=== PATIENT | male | born 2000 | race Caucasian/White ===

== ENCOUNTER → 2019-11-12 15:08 | Outpatient (BNVA) | payer OTHER, SELFPAY | PROVIDERS: PCP Pediatrics; Visit Provider Urology | DX: N48.29 Other inflammatory disorders of penis (principal) | CPT/HCPCS: 99202 ==

== ENCOUNTER 2020-12-22 10:05 | Outpatient (REF) | payer OTHER, SELFPAY ==
[2020-12-22 11:44] LABS: Alanine Aminotransferase 49 U/L (0-40); Albumin Level 4.8 g/dL (3.5-5.0); Alkaline Phosphatase 90 U/L (39-117); Anion Gap 15 (12-20); Aspartate Amino Transferase 26 U/L (5-37); Bilirubin Total 2.8 mg/dL (0.0-1.0); Blood Urea Nitrogen 15 mg/dL (9-16); Calcium 9.9 mg/dL (8.4-10.2); Carbon Dioxide 26 mmol/L (22-29); Chloride 104 mmol/L (96-108); Cholesterol 169 mg/dL; Estimated Glomerular Filt Rate > 60; Glucose Fasting 93 mg/dL (60-99); HDL Cholesterol 56 mg/dL; LDL Cholesterol Calculated 92 mg/dl; Potassium 4.5 mmol/L (3.3-5.1); Sodium 140 mmol/L (135-145); Total Protein 7.5 g/dL (6.5-8.0); Triglycerides 108 mg/dL
[2020-12-22 12:04] LABS: TSH reflex Free T4 1.01 uIU/mL (0.32-4.0)
[2020-12-22 13:18] LABS: CT PCR NOT DETECTED (Not Detect.); NG PCR NOT DETECTED (Not Detect.)
[2020-12-23 08:24] LABS: Syphilis Screen Nonreactive (Nonreactive)
[2020-12-23 08:53] LABS: HBc Num1 0.06 S/CO (0.00-0.79); HIV AB/AG Nonreactive (Nonreactive); HIV Num 1 0.07 S/CO (0.00-0.99); Hepatitis B Core Antibody Nonreactive (Nonreactive); ~Hepatitis B Surface Antibody REACTIVE (Nonreactive)
[2020-12-23 09:12] LABS: HBsAGNum1 0.14 S/CO (0.00-0.99); Hepatitis B Surface Antigen Negative (Negative); ~HepC Num1 0.05 S/CO (0.00-0.79); ~Hepatitis C Antibody Nonreactive (Nonreactive)
== END 2020-12-22 10:06 | disposition home or self-care (01) ==
LOC: HO.LAB 10:05
PROVIDERS: PCP Family Medicine; Visit Provider Family Medicine
DX: Z00.00 Encounter for general adult medical examination without abnormal findings (principal); Z11.3 Encounter for screening for infections with a predominantly sexual mode of transmission; Z11.4 Encounter for screening for human immunodeficiency virus [HIV]
CPT/HCPCS: 80053; 80061; 84443; 86704; 86706; 86780; 86803; 87340; 87389; 87491; 87591

== ENCOUNTER 2021-05-06 12:11 | Outpatient (REF) | payer OTHER, SELFPAY ==
[2021-05-06 13:24] LABS: MANUAL DIFF FLAG NO
[2021-05-06 13:28] LABS: Basophils Percent Auto 0.8 % (0-2); Eosinophils Absolute Auto 0.1 X10*3/uL (0.0-0.4); Eosinophils Percent Auto 1.9 % (0-4); Hematocrit 43.9 % (42.0-52.0); Hemoglobin 15.3 g/dl (14.0-18.0); Imm Gran Abs Auto 0.02 X10*3/uL (0.00-0.03); Imm Gran Pct Auto 0.4 % (0.0-0.4); Mean Corpuscular HGB Conc 34.9 g/dl (31.0-36.0); Mean Corpuscular Hemoglobin 29.8 pg (27.0-33.0); Mean Corpuscular Volume 85.4 fL (80.0-98.0); Mean Platelet Volume 9.3 fL (9.4-12.4); Monocytes Absolute Auto 0.4 X10*3/uL (0.1-1.2); Monocytes Percent Auto 8.5 % (2-11); Neutrophils Absolute Auto 2.6 x10*3/uL (2.0-8.3); Neutrophils Percent Auto 49.4 % (45-73); Platelet Count 250 X10*3/uL (160-400); Red Blood Count 5.14 X10*6/uL (4.60-5.80); Red Cell Distribution Width 11.9 % (11.0-16.0); White Blood Count 5.2 X10*3/uL (4.8-10.8)
[2021-05-06 13:43] LABS: Alanine Aminotransferase 34 U/L (0-40); Albumin Level 4.7 g/dL (3.5-5.0); Alkaline Phosphatase 90 U/L (39-117); Anion Gap 10 (12-20); Aspartate Amino Transferase 21 U/L (5-37); Bilirubin Total 2.5 mg/dL (0.0-1.0); Blood Urea Nitrogen 14 mg/dL (9-16); Calcium 9.8 mg/dL (8.4-10.2); Carbon Dioxide 28 mmol/L (22-29); Chloride 103 mmol/L (96-108); Estimated Glomerular Filt Rate > 60; Glucose Random 93 mg/dL (60-115); Potassium 4.2 mmol/L (3.3-5.1); Sodium 137 mmol/L (135-145); Total Protein 7.3 g/dL (6.5-8.0)
== END 2021-05-06 12:12 | disposition home or self-care (01) ==
LOC: HO.WFDLDS 12:11
PROVIDERS: Visit Provider Family Medicine
DX: Z00.00 Encounter for general adult medical examination without abnormal findings (principal); R74.01 Elevation of levels of liver transaminase levels; R17 Unspecified jaundice
CPT/HCPCS: 36415; 80053; 85025

== ENCOUNTER → 2021-09-28 14:30 | Outpatient (BNVA) | payer OTHER, SELFPAY | PROVIDERS: PCP Family Medicine; Visit Provider Urology | DX: N48.1 Balanitis (principal) | CPT/HCPCS: 99212 ==

== ENCOUNTER 2021-12-20 10:51 | Day surgery (SDC) | payer OTHER, SELFPAY ==
[2021-12-13 13:34] VITALS: BMI 23.3
--- NOTE | 2021-12-16 12:54 | P.CONAN_ITS ---
Documented by User: Magdalene Banks NP 12/16/21 12:54 HPI - Anesthesia Eval Consult details Narrative: 21yo M for Circumcision [facility] Active Problems Active Problems: All Active Problems (Updated 12/13/21 @ 13:28 by Sarah Douglas RN) Foreskin inflammation (Acute) Laboratory exam ordered as part of routine general medical examination (Acute) Adult general medical exam (Acute) Elevated bilirubin (Acute) Elevated alanine aminotransferase (ALT) level (Acute) Balanitis (Acute) Knee pain (Acute) Migraine (Acute) Past Medical History Medical History Migraine Family History Family History Father No problems noted. Mother Mental health disorder Surgical History Surgical History History of wisdom tooth extraction Social History Social History Housing: House Alcohol intake: current Alcohol intake frequency: holidays/special occasions only Patient Tobacco Use Status: Never used Tobacco e-Cigarette/Vaping Use: Never Used Are you DNR?: No Advance Directives: No Advance Directives Information Provided: Yes Recently lost weight without trying: No Nutrition Risks: No Nutritional Risk Poor oral hygiene: No service: No Current occupational status: employed Current occupational exposures/hazards: No Cognitive needs: No Hearing needs: No Vision needs: No Meds Allergies Allergy/AdvReac Type Severity Reaction Status Date / Time amoxicillin [AMOXICILLIN] Allergy Unknown RASH Verified 12/13/21 13:25 Penicillins Allergy rash Verified 12/13/21 13:25 Exam Exam Date and Time: December 16, 2021 1254 Height,Weight and Vital Signs: Height 5 ft 2 in Weight 58.06 kg Assessment and Plan Assessment Anesthesia Assessment: Chart Reviewed Documented by User: Kendall Watson MD 12/20/21 13:22 [facility] Past Medical History Medical History Migraine Functional capacity: uses cane/walker Family History Family History Father No problems noted. Mother Mental health disorder Family history of problems with anesthesia: No Surgical History Surgical History History of wisdom tooth extraction History of Problems with Anesthesia: No Social History Social History Housing: House Alcohol intake: current Alcohol intake frequency: holidays/special occasions on ly Patient Tobacco Use Status: Never used Tobacco e-Cigarette/Vaping Use: Never Used Are you DNR?: No Advance Directives: No Advance Directives Information Provided: Yes Recently lost weight without trying: No Nutrition Risks: No Nutritional Risk Poor oral hygiene: No service: No Current occupational status: employed Current occupational exposures/hazards: No Cognitive needs: No Hearing needs: No Vision needs: No Meds Allergies Allergy/AdvReac Type Severity Reaction Status Date / Time amoxicillin [AMOXICILLIN] Allergy Unknown RASH Verified 12/13/21 13:25 Penicillins Allergy rash Verified 12/13/21 13:25 Exam Airway Mallampati Class: II TM Dist: >3cm Neck ROM: Full Loose/Missing/Broken Teeth: No Heart: rrr Lungs: clear Assessment and Plan Final Anesthetic Review Family History of Problems with Anesthesia: No History of Problems with Anesthesia: No NPO: Yes ASA Class: II Final Preanesthetic Review: No Changes in Pt Med Stat, Meds/Allgs Chart Reviewed, Consent Obtained/Reviewed and Anes Risks/Benef Reviewed Patient Risk: Low
[2021-12-20] VITALS (7 sets, daily range): BP systolic 101–130; BP diastolic 55–75; PULSE 51–72; RESP 14–18; TEMP 36.5–36.6; O2SAT 97–100
[2021-12-20] MEDS: Acetaminophen 325 MG TABLET 650 MG PO (11:10)
[2021-12-20] MEDS: Lactated Ringers 1,000 ML 100 ML IVCONT (11:28)
--- NOTE | 2021-12-20 13:00 | MHC.SHP ---
Pre-Procedural Eval Section A Date of Service: 12/20/21 The patient is an INPATIENT: No Changes since office visit: No Cold of Flu in the past 2 weeks, No New Medical Problems, No Changes in Medication and No Patient answered all questions The History & Physical has been completed within 30 days and I have reviewed it.: No Section B Chief Complaint: Balanitis Details of Present Illness: recurrent Relevant Family History (Specify if Yes): No Relevant Social History: None Present Medications: see Short Stay Collaborative assessment Medical History: No relevant PMH History of Previous Operations: No relevant previous surgery Allergies: Allergies Allergy/AdvReac Type Severity Reaction Status Date / Time amoxicillin [AMOXICILLIN] Allergy Unknown RASH Verified 12/13/21 13:25 Penicillins Allergy rash Verified 12/13/21 13:25 Review of Systems Sugical H&P ROS: Negative: Constitution, Cardiovascular, Respiratory, Neurological, Psychiatric, Hem-Onc, Allergic/Immunologic, Gastrointestinal, Genitourinary, Musculoskeletal, Integumentary, Endocrine and Eyes/Ears/Nose/Throat Exam Surgical H&P Exam: Normal: HEENT, Normal: Heart, Normal: Lungs, Normal: Extremities, Normal: Abdomen, Normal: Skin and Normal: Neurological Plan Diagnosis/Plan: Unchanged (circumcision) I have reviewed the history and physical and performed a pertinent physical examination on my patient. No changes have occurred unless specified.
--- NOTE | 2021-12-20 14:30 | W.PM.OPN ---
Operative Note Operative Note Date of Service: 12/20/21 Narrative: PreOperative Diagnosis: Balanitis Post Operative Diagnosis: Balanitis Procedure: Circumcision Surgeon: Dr Hayes Reeves Anesthesia: General Indications for procedure: Recurring balanitis. Risks and benefits including bleeding, scarring, need for revision surgery been discussed. Procedure: After informed consent was verified the patient was brought to the operating room and placed in a supine position. Anesthesia was administered per protocol. The patient was prepped and draped sterile fashion. Safety pause time-out was performed. Antibiotics have been given. The penis was examined and proximal incision marked that lay just proximal to the resting position of the penile sulcus. This was followed around the circumference of the penis. A penile ring block was performed using 1% lidocaine with no epinephrine. Approximately 8 cc. The proximal incision was developed with sharp blade running circumferentially around the penis. The skin was to give a 1 cm separation between the foreskin in the remaining penile shaft skin. The foreskin was withdrawn and the penile glans exposed. A a distal incision was made approximately 5 mm proximal to the penile sulcus. At the area of the frenulum care was taken to empty the penile frenulum intact. Using clamps the dorsal skin was elevated. Using Metzenbaum scissors the avascular plane was entered and proximal and distal incision were joined. The bridging skin was elevated and clamped. It was then divided using Bovie. The sleeve of tissue was then removed circumferentially around the penis using cautery in order to minimize bleeding. The shaft was then examined in any bleeding areas were controlled. More local anesthetic was injected into the plane beneath avascular plane to help with postprocedure pain management. The skin edges after they were appropriately examined low reapposed. A 3-0 chromic suture was placed at 12:00 o'clock and 06:00 o'clock positions. Interrupted 3-0 was then placed the 09:00 o'clock and 3 o'clock position. Each quadrant was then filled with 3 sutures using 4-0 chromic. At the completion of the procedure there was adequate hemostasis. The incision was washed and dried. Antibiotic cream was applied to the incision. A Tressa wrap was applied followed by a Coban dressing. Xeroform gauze had been used to cover antibiotic ointment. He tolerated the procedure well and was extubated in the room and transferred in stable condition to the recovery area. Pathology: Foreskin Drains: none
== END 2021-12-20 15:58 | disposition home or self-care (01) ==
PROVIDERS: Visit Provider Urology
PROC: (CPT 54161; principal; 2021-12-20 12:30)
DX: N48.1 Balanitis (principal); Z88.0 Allergy status to penicillin
CPT/HCPCS: 54161; 88304; J0690; J1100; J1885; J2250; J2405; J2795; J3010

== ENCOUNTER 2022-12-12 19:56 | Emergency (ER) | payer OTHER, SELFPAY ==
--- NOTE | ~2022-12-12 | XR_ITS ---
EXAMINATION: XR LUMBOSACRAL SPINE CLINICAL INFORMATION: Back pain COMPARISON: None available. TECHNIQUE: Three views of the lumbosacral spine. FINDINGS: The vertebral bodies and posterior elements are normal aside from minimal scoliosis convex to left. The disc spaces are preserved and the vertebral alignment is normal. The paraspinal soft tissues are normal. XR/XR lumbar spine 2-3V IMPRESSION: Unremarkable examination.
--- NOTE | 2022-12-12 20:41 | ED_ITS ---
HPI - General Adult General Chief complaint: Back Pain/Injury Stated complaint: back pain nausea Time Seen by Provider: 12/12/22 22:53 Source: patient Mode of arrival: ambulatory Limitations: no limitations History of Present Illness HPI narrative: 22 yold male presetns to the ED back pain this worse on movement. patient denies any fever, chills, flank pain, fever, or chills. patietn states mild nausea. Patient denies any abdominal pain, vomiting, testicular pain, hematuria, dysuria, penile lesions, or penile discharge. Patient denies any Urinary/bowel Incontinence. Patient denies any IV drug use or pmh of HIV/Hep C. Related Data Previous Rx's Medication Instructions Recorded albuterol sulfate 90 mcg/actuation 2 puff inhalation Q4-6H PRN 11/18/20 aerosol inhaler (ProAir HFA) shortness of breath or wheezing 30 days #8.5 grams azithromycin 250 mg tablet See Rx Instructions PO .COMPLEX #6 04/12/22 tabs naproxen 500 mg tablet 500 mg PO BID PRN pain 7 days #14 12/13/22 tabs Allergies Allergy/AdvReac Type Severity Reaction Status Date / Time amoxicillin [AMOXICILLIN] Allergy Unknown RASH Verified 04/12/22 08:12 Penicillins Allergy rash Verified 04/12/22 08:12 Review of Systems Review of Systems: back pain Yes all other systems are reviewed and are negative [facility] Past Medical History Medical History Migraine Surgical History History of wisdom tooth extraction Family History Family History Father No problems noted. Mother Mental health disorder Social History Social History Housing: House Alcohol intake: current Alcohol intake frequency: holidays/special occasions only Patient Tobacco Use Status: Never used Tobacco e-Cigarette/Vaping Use: Never Used Advance Directives: No Advance Directives Information Provided: No service: No Current occupational status: employed Current occupational exposures/hazards: No Cognitive needs: No Hearing needs: No Vision needs: No Physical Exam ED Vital Signs: Vital Signs - 24 hr 12/12/22 20:42 12/13/22 01:03 Temperature 98.8 F 98.6 F Pulse Rate 66 97 Respiratory Rate 20 20 Blood Pressure 127/76 135/84 Pulse Oximetry 98 98 Oxygen Delivery Method Room Air Room Air BMI result Body Mass Index 21.4 Const General: cooperative, healthy appearing, comfortable, no acute distress, well developed, alert, awake and Physically active Orientation/consciousness: oriented to person, oriented to place, oriented to time and patient oriented x3 [facility] Head: Yes normal to inspection, Yes No palpable skull fracture present, Yes normocephalic and Yes atraumatic Eyes General: appearance normal, both eyes and all related structures Neck Neck: Yes normal visual inspection, Yes full ROM, Yes no lymphadenopathy, Yes no meningeal signs, Yes trachea midline, Yes supple, No anterior neck swelling and No tender Chest Chest palpation & inspection: normal inspection of the chest and normal palpation of entire chest wall Resp Effort & Inspection: normal respiratory effort and able to speak in complete sentences Auscultation: clear to auscultation bilaterally Cardio Jugular venous distension: no JVD Heart sounds: S1 normal heart sound present and S2 normal heart sound present GI Inspection: Yes normal to inspection and No abdominal wall ecchymosis Palpation (GI): Soft to palpation, not firm, nontender, no guarding and not rigid General: No CVA tenderness and Yes no CVA tenderness Back/Spine/Pelvis Back: no CVA tenderness, No CVA tenderness and No back tenderness Skin General skin exam: no rashes or lesions noted, elasticity normal and turgor normal Neuro General: oriented to person, oriented to place, oriented to time, patient oriented x3, gait normal, tone normal, moves all extremities, Normal light touch and pain sensation, no meningeal signs, no focal motor deficits, CN's II-XI intact bilaterally and normal sensation to monofilament Extrem General: Yes normal to inspection and Yes full ROM Psych Appearance: grossly normal, well kempt and not disheveled Course Course Course Narrative: RME- 22 year old male presents for bilateral lower back pain since this morning at 10am. Denies injury or trauma. Medications Administered Discontinued Medications Generic Name Dose Route Start Last Admin Trade Name Freq PRN Reason Stop Dose Admin Ibuprofen 800 mg 12/12/22 23:37 12/12/22 23:53 Ibuprofen 800 Mg Tablet PO 12/12/22 23:38 800 mg ONCE ONE Administration Medical Decision Making Medical Decision Making [facility] Narrative: 22-year-old male presents to ED for back pain worse on movement without any trauma. Patient states slight nausea. Patient denies any abdominal pain, flank pain, fever, chills, testicular pain, dysuria, hematuria, penile discharge, or penile lesions. Lumbar x-ray normal. UA normal. Patient is safe for this Differential Diagnosis Differential Diagnoses: The differential diagnosis associated with the presentation includes (Back fracture, radiculopathy, UTI, kidney stone) Admission/Observation Consideration of admission/observation: Escalation of care including admission/observation considered Lab Data [facility] Lab Attestation statement: I reviewed the patient's lab results. Labs: Lab Results 12/12/22 Range/Units 23:56 Urine Color Yellow Urine Appearance Clear Urine pH 6.5 (5.0-9.0) Ur Specific Brohman 1.020 (1.005-1.025) Urine Protein Negative (Neg-Trace) mg/dL Urine Glucose (UA) Negative (Negative) mg/dL Urine Ketones Negative (Negative) mg/dL Urine Blood Negative (Negative) Urine Nitrite Negative (Negative) Ur Leukocyte Esterase Negative (Negative) Independent Interpretation I performed an independent interpretation of an: Plain X-Ray Radiology Impression Discussion of test interpretation with radiology: I have reviewed the radiologist's reading. External Record Review External record reviewed: Other (prior viist) Prescription Management I considered prescription management with: Pain Medication Discharge Plan Discharge Clinical Impression: Back pain Patient Disposition: Home, Self-Care Instructions: Back Pain (ED) Additional Instructions: Return to the ED immediately for any abdominal pain, nausea, vomiting, fever, chills, urinary/bowel incontinence, severe back pain, inability to walk, tingling paralysis of lower extremities, testicular pain, penile discharge, penile lesions, or any other concerning symptoms. Please follow-up with the primary care provider. Prescriptions: New naproxen 500 mg tablet 500 mg PO BID PRN (Reason: pain) 7 Days Qty: 14 0RF No Action albuterol sulfate [ProAir HFA] 90 mcg/actuation HFA aerosol inhaler 2 puff inhalation Q4-6H PRN (Reason: shortness of breath or wheezing) 30 Days Qty: 8.5 4RF Patient Comments: pt sts hasnot used inhaler in years azithromycin 250 mg tablet See Rx Instructions PO .COMPLEX Qty: 6 0RF Rx Instructions: take 500 mg today (day 1), then 250 mg for 4 days (days 2-5) PO Stand Alone Forms: Work/School Release Interventions: ED Discharge Assessment Last Done: 12/13/22 01:04 Discharge Date/Time: 12/13/22 01:06 Print Language: Indonesian
[2022-12-12 20:42] VITALS: BP 127/76; PULSE 66; RESP 20; TEMP 37.1; O2SAT 98; BMI 21.4
[2022-12-12] MEDS: Ibuprofen 800 MG TABLET PO (23:53)
--- NOTE | 2022-12-13 00:01 | PC.NURSE ---
medicated per Apr, sent ua down, notified Ash Ahmadi
[2022-12-13 00:09] LABS: Appearance Urine Clear; Color Urine Yellow; Glucose Urine UA Negative (Negative); Leukocyte Esterase Urine Negative (Negative); Nitrite Urine Negative (Negative); PH 6.5 (5.0-9.0); Urine Blood Negative (Negative); Urine Ketones Negative (Negative); Urine Protein Negative (Neg-Trace)
[2022-12-13 01:03] VITALS: BP 135/84; PULSE 97; RESP 20; TEMP 37; O2SAT 98
== END 2022-12-13 01:06 | disposition home or self-care (01) ==
PROVIDERS: Physician Assistant; Emergency Provider Internal Medicine; PCP Family Medicine
DX: M54.50 Low back pain, unspecified (principal); R11.2 Nausea with vomiting, unspecified; Z79.899 Other long term (current) drug therapy
CPT/HCPCS: 72100; 81003; 99283; 99284

== ENCOUNTER 2023-12-26 02:19 | Emergency (ER) | payer OTHER, SELFPAY ==
[2023-12-26 02:33] VITALS: BP 117/75; PULSE 64; RESP 18; TEMP 36.8; O2SAT 97; BMI 22.7
[2023-12-26 06:00] VITALS: BP 121/77; PULSE 68; RESP 18; TEMP 36.7; O2SAT 100
--- NOTE | 2023-12-26 06:42 | ED_ITS ---
HPI - General Adult General Chief complaint: Dental/Oral Stated complaint: severe mouth pain Time Seen by Provider: 12/26/23 06:40 Source: patient Mode of arrival: ambulatory Limitations: no limitations History of Present Illness ED Provider: Destinee Zhou PA-C HPI narrative: Patient is a 23 year old assigned male at with a history of migraines presenting to the emergency department today with left sided dental pain. Patient states that earlier this year he had 2 root canals done and was doing OK but now the pain is back and worse. Patient states that he has an appointment with a dentist tomorrow. Patient denies any dizziness, lightheadedness, abdominal pain, nausea, vomiting, fever, chills, blurry vision, double vision, loss of vision, chest pain, difficulty breathing, shortness of breath, back pain, night sweats, pain with urination, increased urinary frequency, increased urinary urgency, blood in his urine or stool, syncope or a near syncopal episode, recent trauma or falls, bowel incontinence, bladder incontinence, or any other complaints at this time. Location: mouth and left Relieving factors: none Exacerbating factors: none Associated symptoms: denies other symptoms Treatments prior to arrival: NSAID Related Data Previous Rx's ?Medication ?Instructions ?Recorded azithromycin 250 mg tablet See Rx Instructions PO .COMPLEX #6 04/12/22 tabs naproxen 500 mg tablet 500 mg PO BID PRN pain 7 days #14 12/13/22 tabs albuterol sulfate 90 mcg/actuation 2 puff inhalation Q4-6H PRN 10/24/23 aerosol inhaler shortness of breath or wheezing 30 days #8.5 grams chlorhexidine gluconate 0.12 % 15 ml buccal BID #118 mL 12/26/23 mouthwash (Peridex) naproxen 500 mg tablet 500 mg PO BID 7 days #14 tabs 12/26/23 Allergies Allergy/AdvReac Type Severity Reaction Status Date / Time amoxicillin [AMOXICILLIN] Allergy Unknown RASH Verified 12/26/23 02:39 Penicillins Allergy rash Verified 12/26/23 02:39 Review of Systems Constitutional: Constitutional: Reports no additional constitutional complaints, Denies chills, Denies fever(s) and Denies night sweats Eyes: Eyes: Reports no additional eye complaints, Denies blurry vision, Denies change in vision, Denies diplopia, Denies eye discharge, Denies loss of vision and Denies eye pain ENT: Denies dizziness Comments: left sided dental pain Cardiovascular: Cardiovascular: Reports no additional cardiovascular complaints, Denies chest pain, Denies lightheadedness, Denies Loss of Consciousness and Denies dyspnea Respiratory: Respiratory: Reports no additional respiratory complaints and Denies dyspnea Gastrointestinal: Gastrointestinal: Reports no additional gastrointestinal complaints, Denies abdominal pain, Denies melena, Denies hematochezia, Denies change in bowel habits and Denies change in stool character Genitourinary: Genitourinary: Reports no additional male genitourinary complaints, Denies hematuria, Denies oliguria, Denies difficulty urinating, Denies dysuria, Denies urinary frequency, Denies urinary hesitancy, Denies urinary incontinence and Denies urinary urgency Musculoskeletal: Musculoskeletal: Reports no additional musculoskeletal complaints, Denies numbness and Denies tingling Neurologic: Denies dizziness, Denies loss of vision, Denies numbness and Denies tingling Psychiatric: Psychiatric: Reports no additional psychiatric complaints Endocrine: Endocrine: Reports no additional endocrine complaints Hematologic/Lymphatic: Hematologic/Lymphatic: Reports no additional hematologic/lymphatic complaints Allergic/Immunologic: Allergic/Immunologic: Reports no additional allergic/immunologic complaints PMF Past Medical History Attestation statement: The following information was validated with the patient. Source: old records reviewed and nursing notes reviewed Medical History Migraine Surgical History History of wisdom tooth extraction Family History Family History Father No problems noted. Mother Mental health disorder Social History Social History Housing: House Alcohol intake: current Alcohol intake frequency: holidays/special occasions only Patient Tobacco Use Status: Never used Tobacco e-Cigarette/Vaping Use: Never Used Advance Directives: No Advance Directives Information Provided: No service: No Current occupational status: employed Current occupational exposures/hazards: No Cognitive needs: No Hearing needs: No Vision needs: No Physical Exam ED Vital Signs: Vital Signs - 24 hr 12/26/23 02:33 12/26/23 06:00 12/26/23 07:04 Temperature 98.2 F 98.1 F 98.1 F Pulse Rate 64 68 68 Respiratory Rate 18 18 18 Blood Pressure 117/75 121/77 121/77 Pulse Oximetry 97 100 98 Oxygen Delivery Method Room Air Room Air Room Air BMI result Body Mass Index 22.7 Const General: cooperative, no acute distress, alert and awake Nutritional Appearance: well nourished Orientation/consciousness: patient oriented x3 Limitations: no limitations HENMT Head: Yes normal to inspection and Yes atraumatic Ears: hearing grossly normal bilaterally and external ears normal General nose exam: Normal external nose present, no nasal discharge noted and no epistaxis Face and sinus: Yes normal facial exam, No abrasion and No laceration Mouth: Normal oral and palatal mucosa present, no drooling and no muffled voice Eyes General: appearance normal, both eyes and all related structures Periorbital: periorbital findings normal Eyelids: Yes eyelids normal Conjunctivae: conjunctivae normal Pupils: Equal, round and reactive pupils present EOM: EOMs intact bilaterally Neck Neck: Yes normal visual inspection, Yes full ROM and Yes no lymphadenopathy Chest Chest palpation & inspection: normal inspection of the chest Resp Effort & Inspection: normal respiratory effort and able to speak in complete sentences GI Inspection: Yes normal to inspection Neuro General: patient oriented x3 and moves all extremities Cranial nerves: Yes Equal, round and reactive pupils present Cognition (Neuro): normal cognition Extrem General: Yes normal to inspection, Yes full ROM and Yes capillary refill normal Psych Appearance: grossly normal Mental Status: mental status grossly normal Affect: normal affect Attitude: cooperative Thought process: Normal thought process present Thought content: Normal thought content present Insight: Good insight present (Psych) Medications Administered Discontinued Medications Generic Name Dose Route Start Last Admin Trade Name Freq PRN Reason Stop Dose Admin Oxycodone HCl 5 mg 12/26/23 06:43 12/26/23 06:59 Oxycodone Hcl Immed Release 5 Mg Tablet PO 12/26/23 06:44 5 mg ONCE ONE Administration Medical Decision Making Medical Decision Making MDM Narrative: Patient is a 23 year old assigned male at with a history of migraines presenting to the emergency department today with left sided mouth pain. Patient's physical exam was unremarkable. I explained my physical exam findings to the patient. I answered all questions asked by the patient. Patient received 1 dose of PO oxy while in the department. I stressed the importance of the patient taking his medication as directed (either prescribed or as the over the counter packaging recommends). I stressed the importance of the patient following up with his primary care provider and a dentist. I stressed the importance of the patient returning to the emergency department immediately if his symptoms were to worsen or if he were to develop any dizziness, shortness of breath, difficulty breathing, chest pain, blurry vision, loss of vision, nausea, vomiting, abdominal pain, fever, chills, back pain, or any other complaints. Patient verbalized agreement and understanding with this treatment plan and discharge. Differential Diagnosis Differential Diagnoses: The differential diagnosis associated with the presentation includes Dental pain Toothache Dental abscess Admission/Observation Consideration of admission/observation: Escalation of care including admission/observation considered Patient would have been admitted to the hospital had his clinical presentation warranted hospital admission. Prescription Management I considered prescription management with: Pain Medication (patient prescribed naproxen.) and Antibiotic (patient already prescribed and taking Clindamycin - instructed to continue this.) Discharge Plan Discharge Clinical Impression: Pain, dental Patient Disposition: Home, Self-Care Instructions: Toothache (ED) Additional Instructions: Follow up with your primary care provider and a dentist. Return to the emergency department immediately if your symptoms worsen or if you develop any dizziness, shortness of breath, difficulty breathing, chest pain, blurry vision, loss of vision, nausea, vomiting, abdominal pain, fever, chills, back pain, or any other complaints. Call or visit any of the clinics below to establish with a dentist: [facility] [address] [place] [address] [facility] [address] [place] [address] [facility] [address] [facility], [address] [address] [place] [address] [facility] [address] [place] [id number] [facility] [address] [place], [place] [id number] [place] [address] [place], [place] [id number] Prescriptions: New naproxen 500 mg tablet 500 mg PO BID 7 Days Qty: 14 0RF chlorhexidine gluconate [Peridex] 0.12 % mouthwash 15 ml buccal BID Qty: 118 0RF No Action albuterol sulfate 90 mcg/actuation HFA aerosol inhaler 2 puff inhalation Q4-6H PRN (Reason: shortness of breath or wheezing) 30 Days Qty: 8.5 0RF Patient Comments: pt sts hasnot used inhaler in years naproxen 500 mg tablet 500 mg PO BID PRN (Reason: pain) 7 Days Qty: 14 0RF azithromycin 250 mg tablet See Rx Instructions PO .COMPLEX Qty: 6 0RF Rx Instructions: take 500 mg today (day 1), then 250 mg for 4 days (days 2-5) PO Referrals: Be Vasquez MD [Primary Care Provider] - Stand Alone Forms: Work/School Release Interventions: ED Discharge Assessment Last Done: 12/26/23 07:04 Discharge Date/Time: 12/26/23 07:04 Print Language: Italian
[2023-12-26] MEDS: oxyCODONE HCl Immed Release 5 MG TABLET PO (06:59)
[2023-12-26 07:04] VITALS: BP 121/77; PULSE 68; RESP 18; TEMP 36.7; O2SAT 98
== END 2023-12-26 07:04 | disposition home or self-care (01) ==
PROVIDERS: Emergency Provider Emergency Medicine; PCP Family Medicine
DX: K08.89 Other specified disorders of teeth and supporting structures (principal)
CPT/HCPCS: 99283

== ENCOUNTER 2024-02-06 10:36 | Outpatient (AMB) | payer OTHER, SELFPAY ==
--- NOTE | 2024-02-06 10:41 | A.OFFPC_ITS ---
Vital Signs 02/06/24 10:47 Height 5 ft 3 in Weight 135 lb BMI 23.9 BP 100/60 Blood Pressure Location Lt brachial Position Sitting Respiration 16 Pulse 63 Pulse Source Pulse Oximeter Temp 97.7 F Temp Source Oral Pulse Oximetry (%) 98 Oxygen Delivery Method Room Air Intake Visit Reasons: back and chest pain (GET INS) Intake Note: left knee pain Allergies amoxicillin [AMOXICILLIN] Allergy (Unknown, Verified 02/06/24 10:44) RASH Penicillins Allergy (Verified 02/06/24 10:44) rash Tobacco use date assessed: 03/23/22 HPI back and chest pain (GET INS) HPI Details 23 y/o male presents today with complain ts of L knee pain. He notes he has had this issue since college. Reports shooting knee pain when he wakes up that lasts a few days then goes away. Reports sensation of instability. Reports a toenail fungus. [facility] Medical History Migraine Surgical History History of wisdom tooth extraction Family History Father No problems noted. Mother Mental health disorder Social History Housing: House Alcohol intake: current Alcohol intake frequency: holidays/special occasions only Patient Tobacco Use Status: Never used Tobacco e-Cigarette/Vaping Use: Never Used service: No Current occupational status: employed Current occupational exposures/hazards: No Cognitive needs: No Hearing needs: No Vision needs: No Questionnaire PHQ-9 Over the last 2 weeks, how often have you been bothered by any of the following problems? 1. Little interest or pleasure in doing things: not at all 2. Feeling down, depressed, or hopeless: not at all 3. Trouble falling or staying asleep, or sleeping too much: not at all 4. Feeling tired or having little energy: not at all 5. Poor appetite or overeating: not at all 6. Feeling bad about yourself - or that you are a failure or have let yourself or your family down: not at all 7. Trouble concentrating on things, such as reading the newspaper or watching television: not at all 8. Moving or speaking so slowly that other people could have noticed. Or the opposite - being so fidgety or restless that you have been moving around a lot more than usual: not at all 9. Thoughts that you would be better off or of hurting yourself in some way: not at all Total score: 0 Source: Developed by Drs. Britton Silveira, Christy Larose, Star Colon and colleagues, with an educational aurea from [employer]. Thrive Questionnaire Date Thrive assessed: 11/18/20 I am a: Patient What is your living situation today?: I have a steady place to live Within the past 12 months, did the food you bought not last and you didn't have the money to get more?: Never true Within the past 12 months, did you worry whether your food would run out before you got money to buy more?: Never true Do you have trouble paying for medicines?: No Do you have trouble getting transportation to medical appointments?: No Do you have trouble paying your heating and electricity bill?: No Do you have trouble taking care of your child, family member or friend?: No Do you have trouble with day-to-day activities such as bathing, preparing meals, shopping, managing finances, etc.?: No Are you currently unemployed and looking for a job?: No Are you interested in more education?: No Please select the resources that you would like help with: None Currently or been in a relationship where the following occur: No concerns reported THRIVE Score: 0 AUDIT C Alcohol Use Questionnaire (AUDIT-C) 1. How often do you have a drink containing alcohol?: Monthly or less 2. How many drinks containing alcohol do you have on a typical day when you are drinking?: 1 or 2 3. How often do you have six or more drinks on one occasion?: Never Total Score: 1 KYRIE-7 AMB Questionnaire KYRIE-7 Date KYRIE - 7 assessed: 11/11/21 Feeling nervous, anxious, or on edge: 0 = Not at all Not being able to stop or control worryin = Not at all Worrying too much about different things: 0 = Not at all Trouble relaxin = Not at all Being so restless that it is hard to sit still: 0 = Not at all Becoming easily annoyed or irritable: 0 = Not at all Feeling afraid as if something awful might happen: 0 = Not at all Total KYRIE-7 score (0-4 normal; 5-9 mild; 10-14 moderate; 15-21 severe): 0 Source: Developed by Drs. Britton Silveira, Christy Larose, Star Colon and colleagues, with an educational aurea from [employer]. Review of Systems Const Denies chills, Denies fatigue, Denies fever(s), Denies headache(s) and Denies weakness ENT Denies dizziness and Denies headache(s) Card Denies dyspnea Resp Denies cough, Denies dyspnea, Denies wheezing and Denies other (shortness of breath) Musc Details: L knee pain Denies numbness and Denies tingling Neuro Denies dizziness, Denies headache(s), Denies numbness, Denies tingling and Denies weakness Psych Denies anxiety and Denies depression Endo Denies fatigue Aller/Immun Denies wheezing Physical exam (Primary Care) Vital Signs: Last Vital Signs Temp 97.7 F 02/06/24 10:47 Pulse 63 02/06/24 10:47 Resp 16 02/06/24 10:47 BP 100/60 02/06/24 10:47 Pulse Ox 98 02/06/24 10:47 Oxygen Delivery Method Room Air 02/06/24 10:47 BMI result Body Mass Index 23.9 Tobacco/Smoking Status: Tobacco use Status Tobacco use date assessed 03/23/22 02/06/24 10:43 Patient Tobacco Use Status Never used Tobacco 02/06/24 10:43 e-Cigarette/Vaping Use Never Used 02/06/24 10:43 PHQ-9: PHQ-9 Score PHQ-9: Total score 0 02/06/24 11:11 Thrive Assessment: Date of Thrive Assessment Date Thrive assessed 11/18/20 02/06/24 10:43 Currently or been in a relationship where the following occur: No concerns reported Const General: well developed; No acute distress Nutritional Appearance: well nourished Orientation/consciousness: patient oriented x3 HENMT Head: Yes normocephalic and Yes atraumatic Eyes General: appearance normal, both eyes and all related structures Pupils: Equal, round and reactive pupils present EOM: EOMs intact bilaterally Resp Effort & Inspection: normal respiratory effort Neuro General: patient oriented x3 and gait normal Cranial nerves: Yes Equal, round and reactive pupils present Psych Affect: normal affect Coding Level of Care Code Est Pt Level 3 (17462) Diagnoses Left knee pain M25.562 Toenail fungus B35.1 Assessment & Plan Assessment & Plan (1) Left knee pain: Code(s): M25.562 - Pain in left knee Category: Medical Plan: Left?knee?pain?with?sensation?of?instability Check xray use?NSAIDs Ice/heat Relative?rest Physical?therapy (2) Toenail fungus: Code(s): B35.1 - Tinea unguium Category: Medical Plan: Start?Lamisil?topical?cream Avoid?excess?moisture Change?socks?twice?a?day Orders: Orders PT Evaluation and Treatment Today M25.562 - Pain in left knee XR knee LT 3V Today M25.562 - Pain in left knee Medications: New terbinafine HCl 1% (Lamisil AT) 1 appl topical BID 30 days 30 grams 3RF B35.1 - Tinea unguium
[2024-02-06 10:47] VITALS: BP 100/60; PULSE 63; RESP 16; TEMP 36.5; O2SAT 98; BMI 23.9
== END 2024-02-06 11:32 | disposition home or self-care (01) ==
PROVIDERS: PCP Family Medicine; Visit Provider Family Medicine
DX: M25.562 Pain in left knee (principal); B35.1 Tinea unguium

== ENCOUNTER 2024-08-05 08:31 | Outpatient (REF) | payer OTHER, SELFPAY ==
--- OUTSIDE RECORDS SUMMARY | 2024-08-05 08:42 | XMS_ITS | Clinical Summary ---
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 1 Units 9 Active Spacer/Aero-Holdi ng Chambers (OPTICHAMBER ADVANTAGE) miscIndications:M ild intermittent asthma without complication Use with MDI as instructed 1 each 9 Active ibuprofen 800 MG tablet 9 Active loratadine (CLARITIN) 10 MG tabletIndications :Chronic seasonal allergic rhinitis due to pollen Take 1 tablet (10 mg total) by mouth daily. As needed for allergies. 30 tablet 5 9 Active mometasone 0.1 % ointment APPLY TO AFFECTED AREA(S) ON RIGHT FOOT TWO TIMES A DAY FOR 2 WEEKS, BREAK FOR 1 WEEK AND REPEAT NEEDED. 3 9 Active SUMAtriptan 50 MG tablet TAKE ONE TABLET BY MOUTH NEEDED FOR HEADACHE, MAY REPEAT DOSE ONCE AFTER 2 HOURS. MAX 2 TABLETS PER 24 HOURS 0 0 Active ketoconazole 2 % creamIndications: Tinea corporis Apply topically daily. 30 g 1 0 Active Retin-A 0.025 % cream APPLY A PEA SIZED AMOUNT TO THE FACE EVERY THIRD NIGHT FOR 1 WEEK, EVERY OTHER NIGHT FOR 1 WEEK, THEN NIGHTLY. 3 0 Active SUMAtriptan (Imitrex) 25 MG tabletIndications :Migraine without aura and without status migrainosus, not intractable Take 1 tablet (25 mg total) by mouth once as needed for migraine (May repeat in 2 hours if symptoms persist) for up to 1 dose. May repeat dose once in 2 hours if no relief. Do not exceed 2 doses in 24 hours. 6 tablet 1 0 Active Active Problems Problem Noted Date Diagnosed Date Need for case management follow-up 06/26/2019 Overview (06/26/2019): 06/26/2019 : Yadiel who is 19yr was seen today during the covid 19 pandemic. When the pandemic subsides, he needs A Physical exam to follow up on virtual visit done today, Age appropriate vital signs, Age appropriate, 19yr, immunizations, Age appropriate Vision +/- hearing screening, GC/Chlamydia screening, Lipid screening Seasonal allergies 06/09/2017 Overview (06/09/2017): Has been previously on claritin daily for the seasonal allergy symptoms (congestion, runny nose, PND). Typically does well on medication if taken seasonally when needed. Assessment & Plan (06/09/2017 6:10 PM EDT): Refilled claritin for daily use, Rx sent to pharmacy for pt to use during allergy season. More worrisome changes to monitor for discussed, when to be seen back in the office reviewed. Watch to ensure that allergies do not trigger asthma sx, and if this occurs he should be seen back in the office. Nodular acne 01/19/2016 Overview (06/12/2018): Followed by [facility] - presently on Retin-A Assessment & Plan (06/09/2017 6:09 PM EDT): Referral to dermatology made in office, pt given information to call BAUDILIO [facility] to book appt as that was where he was seen before. Follow up with referrals with appt date and time, and call us to be seen back in the office with any additional concerns. Mild intermittent asthma without complication Overview (06/12/2018): Albuterol as needed - usually when sick Assessment & Plan (06/09/2017 6:09 PM EDT): Albuterol refilled today, proper use reviewed, rule of 2s discussed. Refilled aerochamber to improve delivery of the medication and when to be seen back in the office if symptoms are more frequent or with any other concerns. Immunizations Immunization Administration Dates Next Due DTP 1998 DTaP 5 05/03/2002, 0,1998,07/07 H1N1 11/26/2008 HPV, Quadrivalent 01/03/2011,03/08/2010,12/30/19 10 Hep A, ped/adol 05/20/2014,11/04/2013 Hep B, ped/adol 1998,1998,1998 Hib (PRP-T) 05/31/1999, 9,1998,05/04 IPV 05/03/2002,1998,1998 Influenza Split 10/26/2012,01/03/2011,12/29/2009 Influenza, injectable, MDCK, preservative free, quadrivalent 11/27/2018,11/09/2017 Influenza, injectable, quadrivalent 02/28/2017,1 Influenza, injectable, quadr ivalent, preservative free 11/21/2019,11/03/2014,11/04/2013 Influenza, injectable, trivalent 11/26/2008 MMR 05/03/2002,02/10/1999 Meningococcal B Trumenba 07/31/2019,06/12/2018 Meningococcal Conj (Menactra) MCV4P 11/10/2015,1 02/28/2009 OPV 02/10/1999 Pneumococcal Polysaccharide 07/31/2019 Tdap 02/28/2017,12/29/2009 Varicella 11/26/2008,02/10/1999 Family History Medical History Relation Name Comments Diabetes Maternal Grandmother Diabetes Mother Janie Lutz Fibromyalgia Mother Janie Lutz Hypertension Mother Janie Lutz Migraines Mother Janie Lutz Relation Name Status Comments Father Alive Maternal Grandfather Alive Maternal Grandmother Alive Mother Janie Lutz Alive Other grandparent: Di abetes mellitus Sister Alive Sister: Asthma Social History Tobacco Use Types Packs/Day Years Used Date Smoking Tobacco: Never Smokeless Tobacco: Never Comments:Never smoker Alcohol Use Standard Drinks/Week Comments No 0 (1 standard drink = 0.6 oz pur e alcohol) Hunger/Food Answer Date Recorded No 11/02/2019 Stable Housing Answer Date Recorded No 11/02/2019 Transportation Concerns Answer Date Rec orded No 11/02/2019 Hazards in Home Answer Date Recorded No 12/19/2019 Financing Utilities Answer Date Recorde d No 12/19/2019 Safety at Home Answer Date Recorded No 12/19/2019 Outside Support Answer Date Recorded No 12/19/2019 Understanding Health Concerns Answer Da te Recorded No 12/19/2019 Financing Health Concerns Answer Date R ecorded No 12/19/2019 Missing School or Work Answer Date Gus rded No 12/19/2019 Sex and Gender Information Value Date Recorded Sex Assigned at Not on file Legal Sex Male 5:13 PM EDT Gender Identity Not on file Sexual Orientation Not on file Last Filed Vital Signs Vital Sign Reading Time Taken Comments Blood Pressure 118/74 03/11/2019 10:03 AM EST Pulse 62 03/11/2019 10:03 AM EST Temperature 36.4 C (97.6 F) 03/11/2019 10:03 AM EST Respiratory Rate - - Oxygen Saturation 99% 02/06/2014 12: 00 AM EST Inhaled Oxygen Concentration - - Weight 52.5 kg (115 lb 12.8 oz) 020 10:03 AM EST Height 158.8 cm (5' 2.5 ) 03/11/2019 10 :03 AM EST Body Mass Index 20.84 03/11/2019 10:03 AM EST Plan of Treatment Health Maintenance Due Date Last Done Comments Influenza Vaccines (#1) 2023 11/21/19 20, 11/27/2018, 11/09/2017, Additional history exists COVID-19 Vaccine ( season) 2023 06/09/2020, 05/19/2020 DTaP,Tdap,and Td Vaccines (8 - Td or Tdap) 02/28/2027 02/28/2017, 12/29/2009, 05/03/2002, Additional history exists Hepatitis B Vaccines Completed 1998, 1998, 1998 HIB Vaccines Completed 05/31/1999, 09/06, 1998, Additional history exists IPV Vaccines Completed 05/03/2002, 06/1999, 1998, Additional history exists MMR Vaccines Completed 05/03/2002, 02/10/1999 Varicella Vaccines Completed 11/26/2008, 02/10/1999 HPV Vaccines Completed 01/03/2011, 02/08, 12/29/2009 Hepatitis A Vaccines Completed 05/20/2014, 11/05/19 14 Meningococcal Vaccine Completed 11/10/2015, 010 Men B Vaccine Completed 07/31/2019, 06/12/2018 Pneumococcal Vaccine Aged Out 07/31/2019 No long er eligible based on patient's age to complete this topic
[2024-08-05 08:52] LABS: MANUAL DIFF FLAG NO
[2024-08-05 09:54] LABS: Basophils Absolute Auto 0.1 X10*3/uL (0.0-0.2); Eosinophils Absolute Auto 0.1 X10*3/uL (0.0-0.4); Eosinophils Percent Auto 1.8 % (0-4); Hematocrit 41.8 % (42.0-52.0); Hemoglobin 14.7 g/dl (14.0-18.0); Imm Gran Abs Auto 0.02 X10*3/uL (0.00-0.03); Imm Gran Pct Auto 0.3 % (0.0-0.4); Lymphocytes Absolute Auto 2.4 X10*3/uL (1.2-4.9); Lymphocytes Percent Auto 39.5 % (20-40); Mean Corpuscular HGB Conc 35.2 g/dl (31.0-36.0); Mean Corpuscular Hemoglobin 29.8 pg (27.0-33.0); Mean Corpuscular Volume 84.8 fL (80.0-98.0); Mean Platelet Volume 9.5 fL (9.4-12.4); Monocytes Absolute Auto 0.5 X10*3/uL (0.1-1.2); Monocytes Percent Auto 7.7 % (2-11); Neutrophils Percent Auto 49.7 % (45-73); Platelet Count 245 X10*3/uL (160-400); Red Blood Count 4.93 X10*6/uL (4.60-5.80); Red Cell Distribution Width 12.4 % (11.0-16.0)
[2024-08-05 10:02] LABS: Estimated Average Glucose 94 mg/dL; Hemoglobin A1c % 4.9 % (<6.0)
[2024-08-05 10:21] LABS: Appearance Urine Clear; Color Urine Yellow; Glucose Urine UA Negative (Negative); Leukocyte Esterase Urine Negative (Negative); Nitrite Urine Negative (Negative); PH 5.5 (5.0-9.0); Specific Gravity - Urine 1.025 (1.005-1.025); Urine Blood Negative (Negative); Urine Ketones Negative (Negative); Urine Protein Negative (Neg-Trace)
[2024-08-05 10:43] LABS: Alanine Aminotransferase 56 U/L (0-40); Albumin Level 4.7 g/dL (3.5-5.0); Alkaline Phosphatase 80 U/L (39-117); Anion Gap 10 (12-20); Aspartate Amino Transferase 34 U/L (5-37); Blood Urea Nitrogen 14 mg/dL (9-16); Calcium 9.3 mg/dL (8.4-10.2); Carbon Dioxide 27 mmol/L (22-29); Chloride 107 mmol/L (96-108); Cholesterol 187 mg/dL (<200); Estimated Glomerular Filt Rate > 60; Glucose Fasting 89 mg/dL (60-99); HDL Cholesterol 59 mg/dL (>40); LDL Cholesterol Calculated 112 mg/dL (<100); Potassium 3.7 mmol/L (3.3-5.1); Sodium 140 mmol/L (135-145); Triglycerides 84 mg/dL (<150)
[2024-08-05 11:05] LABS: TSH reflex Free T4 1.58 uIU/mL (0.32-4.0)
[2024-08-05 11:19] LABS: Creatinine Urine 215.43 mg/dL; Microalbum/Creatinine Ratio Ur 3.7 ug/mg cr (<30)
== END 2024-08-05 08:32 | disposition home or self-care (01) ==
LOC: HO.LAB 08:31
PROVIDERS: PCP Family Medicine; Visit Provider Family Medicine
DX: Z00.00 Encounter for general adult medical examination without abnormal findings (principal); R73.01 Impaired fasting glucose; I10 Essential (primary) hypertension
CPT/HCPCS: 36415; 80053; 80061; 81003; 82043; 82570; 83036; 84443; 85025

== ENCOUNTER 2024-08-06 11:49 | Outpatient (AMB) | payer OTHER, SELFPAY ==
--- NOTE | 2024-08-06 12:13 | A.OFFPC_ITS ---
Vital Signs 08/06/24 12:17 Height 5 ft 3 in Weight 127 lb 2 oz BMI 22.5 BP 110/60 Blood Pressure Location Lt brachial Position Sitting Respiration 16 Pulse 60 Pulse Source Pulse Oximeter Temp 98 F Temp Source Oral Pulse Oximetry (%) 98 Oxygen Delivery Method Room Air Intake Visit Reasons: FU-Labs Intake Note: patient is schedule to review labs. Patient notices when he is at work he has discomfort in his lungs (SOB) would like to R/O mold exposure. 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 Labs drawn 08/05/24. Reviewed labs with pt. Hct 41.8 percent. Elevated ALT of 56. Triglycerides 84. TC 187. LDL 112. HDL 59. TSH 1.58. Pt reports shortness of breath when he is at work. He questions mold exposure. He notes it is not an industrial type job but notices some discomfort when he first walks into work and persists a little while after work. Hx of mild intermittent asthma. HPI Comments History of Present Illness Details Documentation assistance for Be Vasquez MD, was provided by Skyler Carcamo,? Rf Design Engineer on 08/06/2024 at 12:33 PM EST. I, Dr. Vasquez, have read, observed, and verified documentation. [facility] Medical History Migraine Surgical History History of wisdom tooth extraction Family History Father No problems noted. Mother Mental health disorder Social History (Reviewed 12/26/23 @ 07:48 by TAWNYA Saleh Housing: House Alcohol intake: current Alcohol intake frequency: holidays/special occasions only Patient Tobacco Use Status: Never used Tobacco e-Cigarette/Vaping Use: Never Used service: No Current occupational status: employed Current occupational exposures/hazards: No Cognitive needs: No Hearing needs: No Vision needs: No Questionnaire PHQ-9 Over the last 2 weeks, how often have you been bothered by any of the following problems? 1. Little interest or pleasure in doing things: not at all 2. Feeling down, depressed, or hopeless: not at all 3. Trouble falling or staying asleep, or sleeping too much: not at all 4. Feeling tired or having little energy: not at all 5. Poor appetite or overeating: not at all 6. Feeling bad about yourself - or that you are a failure or have let yourself or your family down: not at all 7. Trouble concentrating on things, such as reading the newspaper or watching television: not at all 8. Moving or speaking so slowly that other people could have noticed. Or the opposite - being so fidgety or restless that you have been moving around a lot more than usual: not at all 9. Thoughts that you would be better off or of hurting yourself in some way: not at all Total score: 0 Source: Developed by Drs. Britton Silveira, Christy Larose, Star Colon and colleagues, with an educational aurea from [employer]. Thrive Questionnaire Date Thrive assessed: 08/03/24 I am a: Patient What is your living situation today?: I have a steady place to live Within the past 12 months, did the food you bought not last and you didn't have the money to get more?: Never true Within the past 12 months, did you worry whether your food would run out before you got money to buy more?: Never true Do you have trouble paying for medicines?: No Do you have trouble getting transportation to medical appointments?: No Do you have trouble paying your heating and electricity bill?: No Do you have trouble taking care of your child, family member or friend?: No Do you have trouble with day-to-day activities such as bathing, preparing meals, shopping, managing finances, etc.?: No Are you currently unemployed and looking for a job?: No Are you interested in more education?: No Please select the resources that you would like help with: None Currently or been in a relationship where the following occur: No concerns reported THRIVE Score: 0 AUDIT C Alcohol Use Questionnaire (AUDIT-C) 1. How often do you have a drink containing alcohol?: 2-4 times a month 2. How many drinks containing alcohol do you have on a typical day when you are drinking?: 1 or 2 3. How often do you have six or more drinks on one occasion?: Never Total Score: 2 KYRIE-7 AMB Questionnaire KYRIE-7 Date KYRIE - 7 assessed: 11/11/21 Feeling nervous, anxious, or on edge: 0 = Not at all Not being able to stop or control worryin = Not at all Worrying too much about different things: 0 = Not at all Trouble relaxin = Not at all Being so restless that it is hard to sit still: 0 = Not at all Becoming easily annoyed or irritable: 0 = Not at all Feeling afraid as if something awful might happen: 0 = Not at all Total KYRIE-7 score (0-4 normal; 5-9 mild; 10-14 moderate; 15-21 severe): 0 Source: Developed by Drs. Britton Silveira, Christy Larose, Star Colon and colleagues, with an educational aurea from [employer]. Review of Systems Const Denies chills, Denies fatigue, Denies fever(s), Denies headache(s) and Denies weakness ENT Denies dizziness and Denies headache(s) Card Denies dyspnea Resp Denies cough, Denies dyspnea, Denies wheezing and Denies other (shortness of breath) Musc Denies numbness and Denies tingling Neuro Denies dizziness, Denies headache(s), Denies numbness, Denies tingling and Denies weakness Psych Denies anxiety and Denies depression Endo Denies fatigue Aller/Immun Denies wheezing Physical exam (Primary Care) Vital Signs: Last Vital Signs Temp 98 F 08/06/24 12:17 Pulse 60 08/06/24 12:17 Resp 16 08/06/24 12:17 BP 110/60 08/06/24 12:17 Pulse Ox 98 08/06/24 12:17 Oxygen Delivery Method Room Air 08/06/24 12:17 BMI result Body Mass Index 22.5 Tobacco/Smoking Status: Tobacco use Status Tobacco use date assessed 03/23/22 08/06/24 12:20 Patient Tobacco Use Status Never used Tobacco 08/06/24 12:20 e-Cigarette/Vaping Use Never Used 08/06/24 12:20 PHQ-9: PHQ-9 Score PHQ-9: Total score 0 08/06/24 12:20 Thrive Assessment: Date of Thrive Assessment Date Thrive assessed 08/03/24 08/06/24 12:20 Currently or been in a relationship where the following occur: No concerns reported Const General: well developed; No acute distress Nutritional Appearance: well nourished Orientation/consciousness: patient oriented x3 HENMT Head: Yes normocephalic and Yes atraumatic Eyes General: appearance normal, both eyes and all related structures Pupils: Equal, round and reactive pupils present EOM: EOMs intact bilaterally Resp Effort & Inspection: normal respiratory effort Auscultation: clear to auscultation bilaterally Cardio Rate: regular rate Rhythm: regular rhythm Heart sounds: S1 normal heart sound present, S2 normal heart sound present, no gallops, no murmurs and no rubs Neuro General: patient oriented x3 and gait normal Cranial nerves: Yes Equal, round and reactive pupils present Psych Affect: normal affect Coding Level of Care Code Est Pt Level 4 (20553) Diagnoses Elevated alanine aminotransferase (ALT) level R74.01 Elevated LDL cholesterol level E78.00 Shortness of breath R06.02 Asthma, mild intermittent J45.20 Assessment & Plan Assessment & Plan (1) Elevated alanine aminotransferase (ALT) level: Code(s): R74.01 - Elevation of levels of liver transaminase levels Category: Medical Plan: Mildly?elevated?ALT He?will?recheck?this?in?a?couple?months (2) Elevated LDL cholesterol level: Code(s): E78.00 - Pure hypercholesterolemia, unspecified Category: Medical Plan: Mildly?elevated?LDL Recommend?dietary?changes Will?repeat?with?next?blood?draw (3) Shortness of breath: Code(s): R06.02 - Shortness of breath Category: Medical Plan: Patient?has?a?history?of?mild?intermittent?asthma.??He?does?have?an?albuterol?pu mp. He?is?getting?shortness?of?breath?symptoms?at?work?which?persist?a?little? while?afterwards. Oxygen?saturation?98%?today Lungs?are?clear?to?auscultation?bilaterally Likely?having?reactive?airways?due?to?a?particular?allergen?or?exposure Will?give?him?a?script?for?Zyrtec?and?Flonase Check?chest?x-ray?pulmonary?function?testing (4) Asthma, mild intermittent: Code(s): J45.20 - Mild intermittent asthma, uncomplicated Category: Medical Plan: Continue?using?albuterol?inhaler?PRN Orders: Orders PFT pulmonary function test Today R06.02 - Shortness of breath XR chest 2V Today R06.02 - Shortness of breath Comprehensive [place]. Panel Fast Today R74.01 - Elevation of levels of liver transaminase levels, Z00.00 - Encounter for general adult medical examination without abnormal findings Lipid Panel Today E78.00 - Pure hypercholesterolemia, unspecified, Z00.00 - Encounter for general adult medical examination without abnormal findings Medications: New fluticasone propionate 50 mcg/actuation (Flonase Allergy Relief) administer into each nostril 1 spray intranasal Q12H 16 grams 2RF 30 days cetirizine 10 mg PO DAILY PRN 90 tabs 2RF allergy symptoms 90 days
[2024-08-06 12:17] VITALS: BP 110/60; PULSE 60; RESP 16; TEMP 36.6; O2SAT 98; BMI 22.5
--- OUTSIDE RECORDS SUMMARY | 2024-08-06 13:02 | XMS_ITS | Clinical Summary ---
Author Organization [facility] Address [address] [place] [id number] Phone Care Team Providers Care Bat Boy/Girl Name Role Phone Unavailable Primary Care Provider [...] Health Maintenance Due Date Last Done Comments COVID-19 Vaccine ( season) 2023 06/09/2020, 05/19/2020 Influenza Vaccines (#1) 2024 11/21/19 20, 11/27/2018, 11/09/2017, Additional history exists DTaP,Tdap,and Td Vaccines (8 - Td or [...]
== END 2024-08-06 13:04 | disposition home or self-care (01) ==
LOC: HO.HMCFM 11:50
PROVIDERS: PCP Family Medicine; Visit Provider Family Medicine
DX: R74.01 Elevation of levels of liver transaminase levels (principal); E78.00 Pure hypercholesterolemia, unspecified; R06.02 Shortness of breath; J45.20 Mild intermittent asthma, uncomplicated

== ENCOUNTER 2024-10-23 14:50 | Outpatient (REF) | payer OTHER, SELFPAY ==
--- NOTE | 2024-10-23 14:57 | PFT_ITS ---
Flows: FEV1: 100 % of predicted at 3.62 L FVC: 103 % of predicted at 4.39 L FEV1/FVC: 82 % Bronchodilator response: Absent Volumes: Total lung capacity: 99 % of predicted at 5.49 L Residual volume: 89 % of predicted at 1.05 L Slow vital capacity: 103 % of predicted at 4.44 L Expiratory reserve volume: 99 % of predicted at 1.21 L Diffusion capacity: Normal Impression: No obstructive or restrictive ventilatory defect. No bronchodilator response. Essentially normal pulmonary function test. MTDD
[2024-10-23 15:35] VITALS: PULSE 69; O2SAT 100
--- OUTSIDE RECORDS SUMMARY | 2024-10-23 18:25 | XMS_ITS | Clinical Summary ---
Author Organization [facility] Address [address] [place] [phone] Phone Care Team Providers Care Tank Car Reconditioner Name Role Phone Unavailable Primary Care Provider [...] Date Last Done Comments Influenza Vaccines (#1) 2024 11/21/19 20, 11/27/2018, 11/09/2017, Additional history exists COVID-19 Vaccine ( season) 2024 06/09/2020, 05/19/2020 DTaP,Tdap,and Td Vaccines (8 - [...]
--- OUTSIDE RECORDS SUMMARY | 2024-10-23 18:25 | XMS_ITS | Clinical Summary ---
Author Organization [facility] Address [address] [place] [phone] Phone Care Team Providers Care Sheet Rock Installation Helper Name Role Phone Be Vasquez MD Primary Care Provider Allergies Active Allergy Reactions Criticality Noted Date Comments Amoxicillin Throat Tightness,Rash Medium 08/27/2023 Throat swelling. Apple Juice Rash Low 09/15/2023 Pear Rash Low 09/15/2023 Pineapple Rash Low 09/15/2023 Medications No known medications Social History Tobacco Use Types Packs/Day Years Used Date Smoking Tobacco: Never Smokeless Tobacco: Never Tobacco Cessation:Counseling Given: Not Answered Education Answer Date Recorded Are you interested in more education? Not on sol e 06/03/2022 Are you concerned about learning? Not on file 06/03/2022 No 06/03/2022 No 06/03/2022 Digital Access Answer Date Recorded No 07/05/2022 No 07/05/2022 Reliable internet access at home? Not on file 07/05/2022 Device with a working camera? Not on file Sex and Gender Information Value Date Recorded Sex Assigned at Not on file Legal Sex Male 1:42 PM EST Gender Identity Not on file Sexual Orientation Not on file Last Filed Vital Signs Vital Sign Reading Time Taken Comments Blood Pressure 117/72 09/15/2023 1:12 PM EDT Pulse 72 09/15/2023 1:12 PM EDT Temperature 36.9 C (98.5 F) 09/15/2023 1:12 PM EDT Respiratory Rate 16 09/15/2023 1:12 PM EDT Oxygen Saturation 97% 09/15/2023 1:12 PM EDT Inhaled Oxygen Concentration - - Weight 61.2 kg (135 lb) 09/15/2023 1:12 PM EDT p er pt Height - - Body Mass Index - - Plan of Treatment Health Maintenance Due Date Last Done Comments DEPRESSION SCREENING 2010 HPV VACCINES (1 - Male 3-dose series) 2013 HEPATITIS C SCREENING 02/10/2016 HIV ONE-TIME SCREENING (18-65 YEARS) 02/10/2016 INFLUENZA VACCINE (#1) 2024 , 12/28/2021, 10/14/2020, Additional history exists COVID-19 VACCINE ( - 2024- season) 2024 12/11/2022, 02/01/2021, 06/09/2020, Additional history exists Adult Td,Tdap Booster 02/28/2027 02/28/2017, 010 MENINGOCOCCAL VACCINES (ACWY) Completed 11/10/2015 MENINGOCOCCAL VACCINES (B) Completed 07/31/2019, PNEUMOCOCCAL VACCINES (0-49 years) Aged Out 07/31/2019 No longer eligible based on patient's age to complete this topic SMOKING STATUS SCREENING (Once After 26 Yrs) Completed 09/15/2023 HEPATITIS A VACCINES Aged Out No long er eligible based on patient's age to complete this topic HIB VACCINES Aged Out No longer eligi ble based on patient's age to complete this topic Medical Devices Not on file [facility] [place] [id number] [facility] SAFET[facility] NET PARTIAL AENA [facility] NET PARTIAL Member Subscriber Plan / Payer (Ef fective 2023-Present) Name:Yadiel Mendoza Relation to Subscriber:Self Name:Yadiel Mendoza Payer ID:Not on file Group ID:Not on file Type:Medicaid Address: [place] [id number] [employer] SAFET[employer] NET PARTIAL [employer] [facility] [facility] NET PARTIAL A[facility] NET PARTIAL AETNA [facility] NET PARTIAL AETNA Care Teams Sheet Rock Installation Helper Relationship Specialty Start Date End Date Be Vasquez MD [address] [place] [address] PCP - General Family Medicine 09/15/23 Additional Source Comments The information contained in this document represents components of the legal health record. It is not the complete legal health record.[facility]
--- OUTSIDE RECORDS SUMMARY | 2024-10-23 18:25 | XMS_ITS | Encounter Summary ---
Author Organization [facility] Address [address] [place] [phone] Phone Care Team Providers Care Yoke Presser Name Role Phone Unavailable Primary Care Provider Unavailabl e Encounter Details Date Type Department Care Team (Late st Contact Info) Description 09/22/2016 Conversion Encounter [facility] - [address] [id number] Social History Tobacco Use Types Packs/Day Years Used Date Smoking Tobacco: Never Comments:Never smoker Sex and Gender Information Value Date Recorded Sex Assigned at Not on file Legal Sex Male 5:13 PM EDT Gender Identity Not on file Sexual Orientation Not on file documented as of this encounter Plan of Treatment Not on file documented as of this encounter Visit Diagnoses Not on filedocumented in this encounter
== END 2024-10-23 14:51 | disposition home or self-care (01) ==
LOC: HO.RESP 14:50
PROVIDERS: PCP Family Medicine; Visit Provider Family Medicine
DX: R06.02 Shortness of breath (principal)
CPT/HCPCS: 94010; 94640; 94727; 94729

== ENCOUNTER → 2024-10-23 14:57 | Outpatient (BNV) | payer OTHER, SELFPAY | PROVIDERS: PCP Family Medicine; Visit Provider Internal Medicine Pulmonary Disease | DX: R06.02 Shortness of breath (principal) | CPT/HCPCS: 94060; 94727; 94729 ==

== ENCOUNTER 2024-11-13 15:42 | Outpatient (AMB) | payer OTHER, SELFPAY ==
--- NOTE | 2024-11-13 15:45 | MHC.PC.OV ---
Vital Signs 11/13/24 15:50 Height 5 ft 3 in Weight 127 lb 4 oz BMI 22.5 BP 113/58 L Blood Pressure Location Rt brachial Position Sitting Respiration 16 Pulse 60 Pulse Source Pulse Oximeter Temp 97.9 F Temp Source Oral Pulse Oximetry (%) 97 Oxygen Delivery Method Room Air Intake Visit Reasons: f/u shortness of breath Intake Note: patient here for pulmonary test results Gas Collection System Operator Required: No Allergies amoxicillin (AMOXICILLIN) Allergy (Unknown, Verified 11/13/24 15:49) RASH Penicillins Allergy (Verified 11/13/24 15:49) rash Medication List - Last Reconciled 11/13/24 by Be Vasquez MD albuterol sulfate 90 mcg/actuation 2 puffs inhalation Q4-6H PRN 30 days cetirizine 10 mg PO DAILY PRN 90 days fluticasone propionate 50 mcg/actuation (Flonase Allergy Relief) 1 spray intranasal Q12H 30 days Tobacco use date assessed: 11/13/24 Dental Screening Dental Screen Date: 11/13/24 Did you have a dental visit in the last 12 months?: Yes Did you have a dental problem in the last 6 months where you did not have access to dental care?: No Was dental information given to patient?: Patient has dentist HPI f/u shortness of breath HPI Details 24 y/o male presents to f/u shortness of breath. Pt notes SOB resolved. Pt suspects most of symptoms were due to allergies. Symptoms improved on zyrtec and flonase. PFTs all normal. PFSH Medical History Migraine Surgical History History of wisdom tooth extraction Family History Father No problems noted. Mother Mental health disorder Social History Housing: House Alcohol intake: current Alcohol intake frequency: holidays/special occasions only Patient Tobacco Use Status: Never used Tobacco e-Cigarette/Vaping Use: Never Used Second Hand Smoke Exposure: No service: No Current occupational status: employed Current occupational exposures/hazards: No Cognitive needs: No Hearing needs: No Vision needs: No Questionnaire Thrive Questionnaire Date Thrive assessed: 08/03/24 I am a: Patient What is your living situation today?: I have a steady place to live Within the past 12 months, did the food you bought not last and you didn't have the money to get more?: Never true Within the past 12 months, did you worry whether your food would run out before you got money to buy more?: Never true Do you have trouble paying for medicines?: No Do you have trouble getting transportation to medical appointments?: No Do you have trouble paying your heating and electricity bill?: No Do you have trouble taking care of your child, family member or friend?: No Do you have trouble with day-to-day activities such as bathing, preparing meals, shopping, managing finances, etc.?: No Are you currently unemployed and looking for a job?: No Are you interested in more education?: No Please select the resources that you would like help with: None Currently or been in a relationship where the following occur: No concerns reported THRIVE Score: 0 KYRIE-7 AMB Questionnaire KYRIE-7 Date KYRIE - 7 assessed: 11/11/21 Source: Developed by Drs. Britton Silveira, Christy Larose, Star Colon and colleagues, with an educational aurea from [employer]. Review of Systems Const Denies chills, Denies fatigue, Denies fever(s), Denies headache(s) and Denies weakness ENT Denies dizziness and Denies headache(s) Card Denies dyspnea Resp Denies cough, Denies dyspnea, Denies wheezing and Denies other (shortness of breath) Musc Denies numbness and Denies tingling Neuro Denies dizziness, Denies headache(s), Denies numbness, Denies tingling and Denies weakness Psych Denies anxiety and Denies depression Endo Denies fatigue Aller/Immun Denies wheezing Physical exam (Primary Care) Vital Signs: Last Vital Signs Temp 97.9 F 11/13/24 15:50 Pulse 60 11/13/24 15:50 Resp 16 11/13/24 15:50 BP 113/58 L 11/13/24 15:50 Pulse Ox 97 11/13/24 15:50 Oxygen Delivery Method Room Air 11/13/24 15:50 BMI result Body Mass Index 22.5 Tobacco/Smoking Status: Tobacco use Status Tobacco use date assessed 11/13/24 11/13/24 15:53 Patient Tobacco Use Status Never used Tobacco 11/13/24 15:47 e-Cigarette/Vaping Use Never Used 11/13/24 15:47 Thrive Assessment: Date of Thrive Assessment Date Thrive assessed 08/03/24 11/13/24 15:47 Currently or been in a relationship where the following occur: No concerns reported Const General: well developed; No acute distress Nutritional Appearance: well nourished Orientation/consciousness: patient oriented x3 HENMT Head: Yes normocephalic and Yes atraumatic Eyes General: appearance normal, both eyes and all related structures Pupils: Equal, round and reactive pupils present EOM: EOMs intact bilaterally Resp Effort & Inspection: normal respiratory effort Auscultation: clear to auscultation bilaterally Cardio Rate: regular rate Rhythm: regular rhythm Heart sounds: S1 normal heart sound present, S2 normal heart sound present, no gallops, no murmurs and no rubs Neuro General: patient oriented x3 and gait normal Cranial nerves: Yes Equal, round and reactive pupils present Psych Affect: normal affect Coding Level of Care Code Est Pt Level 4 (93852) Diagnoses Shortness of breath R06.02 Asthma, mild intermittent J45.20 Elevated LDL cholesterol level E78.00 Elevated alanine aminotransferase (ALT) level R74.01 Assessment & Plan Assessment & Plan (1) Shortness of breath: Code(s): R06.02 - Shortness of breath Category: Medical Plan: This has resolved. Patient suspects that most of his symptoms were secondary to allergies and they did improve with Zyrtec and Flonase We discussed a referral to immunology but for now has no symptoms and would like to hold off on this. He will let know if this changes (2) Asthma, mild intermittent: Code(s): J45.20 - Mild intermittent asthma, uncomplicated Category: Medical Plan: Pulmonary function testing all normal Patient gets shortness of breath and some bronchospasm secondary to allergies Can continue Zyrtec and Flonase He will let know if symptoms resume As above, would consider a referral to immunology as his triggers seem to be allergies. (3) Elevated LDL cholesterol level: Code(s): E78.00 - Pure hypercholesterolemia, unspecified Category: Medical Plan: Encouraged him to work at a diet low in saturated fats and cholesterol Will recheck with his next blood draw (4) Elevated alanine aminotransferase (ALT) level: Code(s): R74.01 - Elevation of levels of liver transaminase levels Category: Medical Plan: Mild ALT elevation Encouraged good hydration Avoid excess Tylenol Avoid excess alcohol Will recheck with next blood draw Orders: Orders Comprehensive [place]. Panel Fast Today Z00.00 - Encounter for general adult medical examination without abnormal findings Lipid Panel Today Z00.00 - Encounter for general adult medical examination without abnormal findings Microalbumin, Random (w Creat) Today I10 - Essential (primary) hypertension TSH reflex Free T4 Today Z00.00 - Encounter for general adult medical examination without abnormal findings Complete Blood Count Auto Diff Today Z00.00 - Encounter for general adult medical examination without abnormal findings UA CC w/rflx Micro + Cult Today Z00.00 - Encounter for general adult medical examination without abnormal findings
[2024-11-13 15:50] VITALS: BP 113/58; PULSE 60; RESP 16; TEMP 36.6; O2SAT 97; BMI 22.5
== END 2024-11-13 16:19 | disposition home or self-care (01) ==
LOC: HO.HMCFM 15:43
PROVIDERS: PCP Family Medicine; Visit Provider Family Medicine
DX: R06.02 Shortness of breath (principal); J45.20 Mild intermittent asthma, uncomplicated; E78.00 Pure hypercholesterolemia, unspecified; R74.01 Elevation of levels of liver transaminase levels

== ENCOUNTER 2025-01-23 09:35 | Outpatient (AMB) | payer OTHER, SELFPAY ==
--- OUTSIDE RECORDS SUMMARY | 2025-01-13 14:34 | XMS_ITS | Encounter Summary ---
Author Organization [facility] Address [address] [place] [phone] Phone Care Team Providers Care Retail Marketing Coordinator Name Role Phone Be Vasquez MD Primary Care Provider Encounter Details Date Type Department Care Team (Late st Contact Info) Description 01/13/2025 2:34 PM EST Hospital Encounter [facility] [address] [place] [id number] Lena Astudillo FNP [address] [place] [id number] [email or web address] [place] Tobacco Use Types Packs/Day Years Used Date Smoking Tobacco: Never Smokeless Tobacco: Never Education Answer Date Recorded Are you interested in more education? Not on sol e 06/03/2022 Are you concerned about learning? Not on file 06/03/2022 No 06/03/2022 No 06/03/2022 Digital Access Answer Date Recorded No 07/05/2022 No 07/05/2022 Reliable internet access at home? Not on file 07/05/2022 Device with a working camera? Not on file Intimate Partner Violence Answer Date R ecorded Are you denied basic needs s uch as food, clothing, or medical care? No 01/16/2025 In the past 12 months have y ou been in a relationship with a person who hurts, threatens, or tries to control you? No 01/16/2025 Are you denied basic needs s uch as food, clothing, or medical care? No 01/16/2025 In the past 12 months have y ou been in a relationship with a person who hurts, threatens, or tries to control you? No 01/16/2025 Sex and Gender Information Value Date Recorded Sex Assigned at Male 01/16/2025 2:58 AM EST Legal Sex Male 1:42 PM EST Gender Identity Male 01/16/2025 2:58 AM EST Sexual Orientation Don't know 01/16/2025 2: 58 AM EST documented as of this encounter Functional Status * Calculated C-SSRS Risk Score (Lifetime/Recent) Answer Date of Assessment Author No Risk Indicated 01/16/2025 2:09 AM EST Jammie Velasco RN * [place] Suicide Severity Rating Scale (Screener/Recent Self-Report) Question Answer Date of Assessment Author 1. Wish to be (Past 1 Month) No 025 2:09 AM EST Be Velasco RN 2. Non-Specific Active Suici lenora Thoughts (Past 1 Month) No 01/16/2025 2:09 AM EST Be Velasco RN 6. Suicidal Behavior (Lifetime) No 2:09 AM EST Be Velasco RN documented as of this encounter Plan of Treatment Not on file documented as of this encounter Procedures Procedure Name Priority Date/Time Associated Diagnosis Comments XR CHEST PA AND LATERAL 2 VIEWS Urgent/patient waiting 01/13/2025 2:37 PM EST Viral upper respiratory tract infection with cough documented in this encounter Results * XR CHEST PA AND LATERAL 2 VIEWS (01/13/2025 2:37 PM EST) Anatomical Region Laterality Modality Chest Computed Radiogr aphy 01/13/2025 2:59 PM EST Impressions 01/13/2025 3:17 PM EST 1. No focal consolidation. 2. Lucent blunting of the right costophrenic angle, may represent pleural thickening/subpleural fat or small right pleural effusion. No priors for comparison. ATTESTATION: I, Shameka Conn as teaching physician, have reviewed the images for this case and if necessary edited the report originally created by Saúl Miller. Narrative 01/13/2025 3:17 PM EST XR CHEST PA AND LATERAL 2 VIEWS Referring clinician's provided indication for this examination in Epic: Cough; sob, chest tightness one week COMPARISON: None FINDINGS: Devices/Tubes/Lines: None. Lungs: No focal consolidation or pulmonary edema. Pleura: Lucent blunting of the right costophrenic angle, may represent pleural thickening/subpleural fat or small right pleural effusion. No pneumothorax. Heart/Mediastinum: Normal heart and mediastinum. Bones/Soft Tissues: No significant skeletal abnormality. Procedure Note Shameka Conn MD - 01/13/2025 XR CHEST PA AND LATERAL 2 VIEWS Referring clinician's provided indication for this examination in Epic:Cough; sob, chest tightness one week COMPARISON: None FINDINGS: Devices/Tubes/Lines: None. Lungs: No focal consolidation or pulmonary edema. Pleura: Lucent blunting of the right costophrenic angle, may representpleural thickening/subpleural fat or small right pleural effusion. Nopneumothorax. Heart/Mediastinum: Normal heart and mediastinum. Bones/Soft Tissues: No significant skeletal abnormality. IMPRESSION: 1. No focal consolidation. 2. Lucent blunting of the right costophrenic angle, may represent pleuralthickening/subpleural fat or small right pleural effusion. No priors forcomparison. ATTESTATION: I, Shameka Conn as teaching physician, have reviewed theimages for this case and if necessary edited the report originally createdby Saúl Miller. Lena Astudillo STATISTICS TUTOR IMG XR CHEST Final Resul t documented in this encounter Visit Diagnoses Not on filedocumented in this encounter Additional Health Concerns Infection Onset Date Last Indicated Resolved Time Resp-Risk 01/16/2025 01/16/2025 documented as of this encounter Care Teams Retail Marketing Coordinator Relationship Specialty Start Date End Date Be Vasquez MD PCP - General Family Medicine 09/15/23 01/15/25 documented as of this encounter Additional Source Comments The information contained in this document represents components of the legal health record. It is not the complete legal health record.[facility]
--- NOTE | 2025-01-23 09:38 | MHC.PC.OV ---
Vital Signs 01/23/25 09:42 Height 5 ft 3 in Weight 124 lb 4 oz BMI 22.0 BP 109/55 L Blood Pressure Location Rt brachial Position Sitting Respiration 16 Pulse 80 Pulse Source Pulse Oximeter Temp 97.8 F Temp Source Oral Pulse Oximetry (%) 98 Oxygen Delivery Method Room Air Intake Visit Reasons: ER on 01/15 shortness of breath Intake Note: patient here for ER follow up for shortness of breath Supply Officer Required: No Allergies amoxicillin (AMOXICILLIN) Allergy (Unknown, Verified 01/23/25 09:42) RASH Penicillins Allergy (Verified 01/23/25 09:42) rash Medication List - Last Reconciled 01/23/25 by Be Vasquez MD albuterol sulfate 90 mcg/actuation 2 puffs inhalation Q4-6H PRN 30 days cetirizine 10 mg PO DAILY PRN 90 days fluticasone propionate 50 mcg/actuation (Flonase Allergy Relief) 1 spray intranasal Q12H 30 days Tobacco use date assessed: 01/23/25 Dental Screening Dental Screen Date: 01/23/25 Did you have a dental visit in the last 12 months?: Yes Did you have a dental problem in the last 6 months where you did not have access to dental care?: No Was dental information given to patient?: Patient has dentist HPI ER on 01/15 shortness of breath HPI Details 24 y/o male presents to f/u 01/16/25 ED visit for shortness of breath. Workup had been reassuring. They recommended him to continue steroids as prescribed along with his inhaler. [facility] Medical History Migraine Surgical History History of wisdom tooth extraction Family History Father No problems noted. Mother Mental health disorder Social History Housing: House Alcohol intake: current Alcohol intake frequency: holidays/special occasions only Patient Tobacco Use Status: Never used Tobacco e-Cigarette/Vaping Use: Never Used Second Hand Smoke Exposure: No service: No Current occupational status: employed Current occupational exposures/hazards: No Cognitive needs: No Hearing needs: No Vision needs: No Questionnaire Thrive Questionnaire Date Thrive assessed: 08/03/24 I am a: Patient What is your living situation today?: I have a steady place to live Within the past 12 months, did the food you bought not last and you didn't have the money to get more?: Never true Within the past 12 months, did you worry whether your food would run out before you got money to buy more?: Never true Do you have trouble paying for medicines?: No Do you have trouble getting transportation to medical appointments?: No Do you have trouble paying your heating and electricity bill?: No Do you have trouble taking care of your child, family member or friend?: No Do you have trouble with day-to-day activities such as bathing, preparing meals, shopping, managing finances, etc.?: No Are you currently unemployed and looking for a job?: No Are you interested in more education?: No Please select the resources that you would like help with: None Currently or been in a relationship where the following occur: No concerns reported THRIVE Score: 0 KYRIE-7 AMB Questionnaire KYRIE-7 Date KYRIE - 7 assessed: 11/11/21 Source: Developed by Drs. Britton Silveira, Christy Larose, Star Colon and colleagues, with an educational aurea from [employer]. Review of Systems Const Denies chills, Denies fatigue, Denies fever(s), Denies headache(s) and Denies weakness ENT Denies dizziness and Denies headache(s) Card Denies dyspnea Resp Denies cough, Denies dyspnea, Denies wheezing and Denies other (shortness of breath) Musc Denies numbness and Denies tingling Neuro Denies dizziness, Denies headache(s), Denies numbness, Denies tingling and Denies weakness Psych Denies anxiety and Denies depression Endo Denies fatigue Aller/Immun Denies wheezing Physical exam (Primary Care) Vital Signs: Last Vital Signs Temp 97.8 F 01/23/25 09:42 Pulse 80 01/23/25 09:42 Resp 16 01/23/25 09:42 BP 109/55 L 01/23/25 09:42 Pulse Ox 98 01/23/25 09:42 Oxygen Delivery Method Room Air 01/23/25 09:42 BMI result Body Mass Index 22.0 Tobacco/Smoking Status: Tobacco use Status Tobacco use date assessed 01/23/25 01/23/25 09:48 Patient Tobacco Use Status Never used Tobacco 01/23/25 09:41 e-Cigarette/Vaping Use Never Used 01/23/25 09:41 Thrive Assessment: Date of Thrive Assessment Date Thrive assessed 08/03/24 01/23/25 09:41 Currently or been in a relationship where the following occur: No concerns reported Const General: well developed; No acute distress Nutritional Appearance: well nourished Orientation/consciousness: patient oriented x3 HENMT Head: Yes normocephalic and Yes atraumatic Eyes General: appearance normal, both eyes and all related structures Pupils: Equal, round and reactive pupils present EOM: EOMs intact bilaterally Resp Effort & Inspection: normal respiratory effort Neuro General: patient oriented x3 and gait normal Cranial nerves: Yes Equal, round and reactive pupils present Psych Affect: normal affect Coding Level of Care Code Est Pt Level 3 (18510) Diagnoses Shortness of breath R06.02 Assessment & Plan Assessment & Plan (1) Shortness of breath: Code(s): R06.02 - Shortness of breath Category: Medical Plan: Bronchitis secondary to viral illness versus asthma exacerbation secondary to viral illness Did well with prednisone and has albuterol at home Giving him a controller medication which he can use when he is symptomatic or 4 times of year when he gets symptoms. Use rescue medication when you have symptoms Call or return to office if worsening or not improving Medications: New budesonide 180 mcg/actuation (Pulmicort Flexhaler) 1 inh inhalation BID 1 ea 3RF 30 days Refilled albuterol sulfate 90 mcg/actuation 2 puffs inhalation Q4-6H PRN 8.5 grams 0RF shortness of breath or wheezing 30 days
[2025-01-23 09:42] VITALS: BP 109/55; PULSE 80; RESP 16; TEMP 36.6; O2SAT 98; BMI 22.0
--- OUTSIDE RECORDS SUMMARY | 2025-01-23 11:09 | XMS_ITS | Encounter Summary ---
Author Organization [facility] Address [address] [place] [phone] Phone Care Team Providers Care Tar Heater Name Role Phone Unavailable Primary Care Provider Unavailabl e Encounter Details Date Type Department Care Team (Late st Contact Info) Description 09/22/2016 Conversion Encounter [facility] - [address] [address] Social History Tobacco Use Types Packs/Day Years [...]
--- OUTSIDE RECORDS SUMMARY | 2025-01-23 11:09 | XMS_ITS | Clinical Summary ---
Author Organization [facility] Address [address] [place] [phone] Phone Care Team Providers Care Pet Care Associate Name Role Phone Unavailable Primary Care Provider [...]
--- OUTSIDE RECORDS SUMMARY | 2025-01-23 11:09 | XMS_ITS | Clinical Summary ---
Author Organization [facility] Address [address] [place] [phone] Phone Care Team Providers Care E Learning Designer Name Role Phone Be Vasquez MD Primary Care Provider Allergies Active Allergy Reactions Criticality Noted Date Comments Amoxicillin Throat Tightness,Rash Medium 08/27/2023 Throat swelling. Apple Juice Rash Low 09/15/2023 Pear Rash Low 09/15/2023 Pineapple Rash Low 09/15/2023 Medications albuterol 90 mcg/actuation inhaler Inhale 2 puffs into the lungs every 4 (four) hours as needed for wheezing or shortness of breath/dyspnea (cough). 18 g 5 Active inhaler spacing device (AEROCHAMBER,BR EATHERITE) Spcr Inhale 1 each into the lungs every 4 (four) hours as needed (with inhaler). 1 each 5 Active benzonatate (TESSALON) 100 MG capsule Take 2 capsules (200 mg total) by mouth 3 (three) times a day as needed for cough. 21 capsule 5 Active predniSONE (DELTASONE) 20 MG tablet Take 3 tablets (60 mg total) by mouth daily for 5 days. 15 tablet 5 01/19/20 25 Active Problems No known active problems Encounters Date Type Department Care Team Description 01/16/2025 3:04 AM EST - 01/16/2025 6:06 AM EST Emergency [facility] [address] [place] [address] Micheal Rubio, DO Discharge Disposition: Home or Self Care 01/13/2025 2:34 PM EST Hospital Encounter [facility] [address] [place] [id number] Lena Astudillo FNP 01/13/2025 2:10 PM EST Office Visit [facility] at [address] [id number] Lena Astudillo FNP Viral upper respiratory tract infection with cough (Primary Dx); Exacerbation of asthma, unspecified asthma severity, unspecified whether persistent from Last 3 Months Social History Tobacco Use Types Packs/Day Years [...] Don't know 01/16/2025 2: 58 AM EST Last Filed Vital Signs Vital Sign Reading Time Taken Comments Blood Pressure 131/67 01/16/2025 6:05 AM EST Pulse 82 01/16/2025 6:05 AM EST Temperature 36.6 C (97.8 F) 01/16/2025 6:05 AM EST Respiratory Rate 20 01/16/2025 6:05 AM EST Oxygen Saturation 95% 01/16/2025 6:05 AM EST Inhaled Oxygen Concentration - - Weight 61.2 [...] 10/14/2020, Additional history exists COVID-19 VACCINE ( season) 2024 12/11/2022, 02/01/2021, 06/09/2020, Additional history exists Adult Td,Tdap Booster 02/28/2027 02/28/2017, 010 MENINGOCOCCAL VACCINES (ACWY) Completed 11/10/2015 MENINGOCOCCAL VACCINES (B) Completed 07/31/2019, PNEUMOCOCCAL VACCINES (0-49 years) Aged Out 07/31/2019 No longer eligible based on patient's age to complete this topic SMOKING STATUS SCREENING (Once After 26 Yrs) Completed 01/16/2025 HEPATITIS A VACCINES Aged Out No long er eligible based on patient's age to complete this topic HIB VACCINES Aged Out No longer eligi ble based on patient's age to complete this topic Medical Devices Not on file Procedures Procedure Name Priority Date/Time Associated Diagnosis Comments CBC AND DIFFERENTIAL STAT 01/16/2025 4:31 AM EST NT-PROBNP STAT 01/16/2025 4:31 AM EST D-DIMER STAT 01/16/2025 4:31 AM EST TROPONIN STAT 01/16/2025 4:31 AM EST BASIC METABOLIC PANEL (BMP) STAT 01/16/2025 4:31 AM EST CBC AND DIFFERENTIAL STAT 01/16/2025 4:31 AM EST XR CHEST PA AND LATERAL 2 VIEWS Routine 01/16/2025 3:17 AM EST SARS-COV-2, INFLUENZA A/B, PCR LANG STAT 01/16/2025 2:18 AM EST COVID PANDEMIC RESPIRATORY VIRAL ORDER (PRO) STAT 01/16/2025 2:18 AM EST XR CHEST PA AND LATERAL 2 VIEWS Urgent/patient waiting 01/13/2025 2:37 PM EST Viral upper respiratory tract infection with cough from Last 3 Months Results * (ABNORMAL) CBC and Differential (01/16/2025 4:31 AM EST) WBC 11.46(H) 4.00 - 11.00 K/uL 01/16/2025 4:43 AM [facility] RBC 4.84 4.50 - 5.90 M/uL 01/16/2025 4:43 AM [facility] Hemoglobin 14.5 13.5 - 17.5 g/dL 01/16/2025 4:43 AM [facility] Hematocrit 41.2 41.0 - 53.0 % 01/16/2025 4:43 AM [facility] MCV 85.1 80.0 - 100.0 fL 01/16/2025 4:43 AM [facility] MCH 30.0 27.0 - 31.0 pg 01/16/2025 4:43 AM [facility] MCHC 35.2 32.0 - 36.0 g/dL 01/16/2025 4:43 AM [facility] MPV 8.5 8.4 - 12.0 fL 01/16/2025 4:43 AM [facility] RDW-CV 12.2 11.5 - 14.5 % 01/16/2025 4:43 AM [facility] PLT 287 150 - 450 K/uL 01/16/2025 4:43 AM [facility] Neutrophils 77.3 % 01/16/2025 4:43 AM [facility] Lymphocytes 15.9 % 01/16/2025 4:43 AM [facility] Monocytes 5.1 % 01/16/2025 4:43 AM [facility] Eosinophils 0.0 % 01/16/2025 4:43 AM [facility] Basophils 0.2 % 01/16/2025 4:43 AM [facility] Imm Grans 1.5 % 01/16/2025 4:43 AM [facility] NRBC 0.0 <=0.0 /100 WBCs 01/16/2025 4:43 AM [facility] Absolute Neutrophils 8.86(H) 1.92 - 7.60 K/uL 01/16/2025 4:43 AM [facility] Absolute Lymphocytes 1.82 0.72 - 4.10 K/uL 01/16/2025 4:43 AM [facility] Absolute Monocytes 0.59 0.16 - 1.10 K/uL 01/16/2025 4:43 AM [facility] Absolute Eosinophils 0.00 0.00 - 0.50 K/uL 01/16/2025 4:43 AM [facility] Absolute Basophils 0.02 0.00 - 0.15 K/uL 01/16/2025 4:43 AM [facility] Absolute Imm Grans 0.17(H) 0.00 - 0.09 K/uL 01/16/2025 4:43 AM [facility] Absolute NRBC 0.00 <=0.00 K cells/uL 01/16/2025 4:43 AM [facility] Absolute Neutrophils 8.86(H) 1.92 - 7.60 K/uL 01/16/2025 4:43 AM [facility] Comment:Automated cell count . Manual ANC may differ if performed. Diff Type Auto 01/16/2025 4:43 AM [facility] Blood (Blood) Venipuncture / Unknown 01/16/2025 4:31 AM EST 01/16/2025 4:33 AM EST us Micheal Rubio DO LAB BLOOD BKR ORDERABLES Mely l Result Performing Organization Address [facility]/ZIP Co de Phone Number [address] [address] * D-Dimer (01/16/2025 4:31 AM EST) D-Dimer <215 <500 ng/mL FEU 01/16/2025 5:11 AM EST [facility] Comment: (Range) Below Test Range [215.000 - 7650.000] (Range) Below Linear Range Blood (Blood) Venipuncture / Unknown 01/16/2025 4:31 AM EST 01/16/2025 4:33 AM EST us Micheal Mckeonage DO LAB BLOOD BKR ORDERABLES Mely l Result Performing Organization Address [facility] Co de Phone Number [address] [phone] * Troponin (01/16/2025 4:31 AM EST) Troponin-T HS Gen5 <6 0 - 14 ng/L 01/16/2025 4:58 AM EST [facility] Blood (Blood) Venipuncture / Unknown 01/16/2025 4:31 AM EST 01/16/2025 4:33 AM EST us Micheal Rubio DO LAB BLOOD BKR ORDERABLES Mely l Result Performing Organization Address City/[facility]/ZIP Co de Phone Number [address] [address] * NT-proBNP (01/16/2025 4:31 AM EST) NT-ProBNP <36 0 - 450 pg/mL 01/16/2025 4:58 AM EST [facility] Comment: Age <50 years: 0-450 pg/ml Age 50-75 years: 0-900 pg/ml Age >75 years: 0-1800 pg/ml A NT-proBNP <300 pg/ml effectively rules out acute congestive heart failure, with 99% negative predictive value. NT-proBNP cutoffs were developed for the diagnosis of heart failure. Marked elevations in NT-proBNP levels may be observed in states other than left ventricular congestive heart failure. Falsely low NT-proBNP in congestive heart failure patients may be observed with increasing body-mass index. Blood (Blood) Venipuncture / Unknown 01/16/2025 4:31 AM EST 01/16/2025 4:33 AM EST us Micheal Rubio DO LAB BLOOD BKR ORDERABLES Mely l Result [facility] [address] [place] [address] * (ABNORMAL) Basic Metabolic Panel (BMP) (01/16/2025 4:31 AM EST) Sodium 136 136 - 145 mmol/L 01/16/2025 4:58 AM [facility] Potassium 4.1 3.4 - 5.1 mmol/L 01/16/2025 4:58 AM [facility] Chloride 100 98 - 107 mmol/L 01/16/2025 4:58 AM [facility] CO2 23 20 - 31 mmol/L 01/16/2025 4:58 AM [facility] BUN 12 6 - 23 mg/dL 01/16/2025 4:58 AM [facility] Creatinine 0.70 0.60 - 1.30 mg/dL 01/16/2025 4:58 AM [facility] Glucose 153(H) 70 - 99 mg/dL 01/16/2025 4:58 AM [facility] Calcium 10.1 8.5 - 10.5 mg/dL 01/16/2025 4:58 AM [facility] eGFR 130 >59 mL/min/1.7 3m2 01/16/2025 4:58 AM [facility] Comment:Estimated glomerular filtration rate calculated using the CKD-EPI refit equation. Anion Gap 13 3 - 17 mmol/L 01/16/2025 4:58 AM [facility] Blood (Blood) Venipuncture / Unknown 01/16/2025 4:31 AM EST 01/16/2025 4:33 AM EST us Micheal Rubio DO LAB BLOOD BKR ORDERABLES Mely l Result [address] [address] * XR CHEST PA AND LATERAL 2 VIEWS (01/16/2025 3:17 AM EST) Anatomical Region Laterality Modality Chest Computed Radiogr aphy 01/16/2025 4:50 AM EST Impressions 01/16/2025 4:51 AM EST No focal consolidation. Narrative 01/16/2025 4:51 AM EST XR CHEST PA AND LATERAL 2 VIEWS Referring clinician's provided indication for this examination in [facility]: Dyspnea (Shortness of Breath) COMPARISON: XR CHEST PA AND LATERAL 2 VIEWS FINDINGS: Devices/Tubes/Lines: None. Lungs: No focal consolidation or pulmonary edema. Pleura: No pleural effusion or pneumothorax. Heart/Mediastinum: Normal heart and mediastinum. Bones/Soft Tissues: No significant abnormality. Procedure Note Brian Rico MD - 01/16/2025 XR CHEST PA AND LATERAL 2 VIEWS Referring clinician's provided indication for this examination in [facility]:Dyspnea (Shortness of Breath) COMPARISON: XR CHEST PA AND LATERAL 2 VIEWS FINDINGS: Devices/Tubes/Lines: None. Lungs: No focal consolidation or pulmonary edema. Pleura: No pleural effusion or pneumothorax. Heart/Mediastinum: Normal heart and mediastinum. Bones/Soft Tissues: No significant abnormality. IMPRESSION: No focal consolidation. us Micheal Rubio DO IMG XR CHEST Final Result * SARS-CoV-2, INFLUENZA A/B, PCR (01/16/2025 2:18 AM EST) SARS-CoV-2 RNA PCR Not Detected Not Detected 01/16/2025 2:56 AM EST [facility] Influenza A PCR Not Detected Not Detected 01/16/2025 2:56 AM EST [facility] Influenza B PCR Not Detected Not Detected 01/16/2025 2:56 AM EST [facility] Swab (Nasopharynx, Bilateral) 01/16/2025 2:18 AM EST 01/16/2025 2:23 AM EST us Micheal Rubio DO LAB GENERAL ORDERABLES Final Result Performing Organization Address [facility] Co de Phone Number [address] [phone] * Symptomatic Respiratory Virus Testing Panel (ED/IP) (01/16/2025 2:18 AM EST) SARS Comment 01/16/2025 2:34 AM EST [facility] Comment:This test automatica lly orders a COVID-19 PCR and may add Flu, RSV, or other viral tests based on patient clinical factors and site protocols. Results will appear below and separately in chart review when available. Swab (Nasopharynx, Bilateral) 01/16/2025 2:18 AM EST 01/16/2025 2:23 AM EST us Micheal Rubio DO LAB GENERAL ORDERABLES Final Result Performing Organization Address [facility] Co de Phone Number [address] [phone] * XR CHEST PA AND LATERAL 2 [...] report originally createdby Saúl Miller. Lena Astudillo CHANNEL CEMENTER INSOLE MACHINE IMG XR CHEST Final Resul t from Last 3 Months Additional Health Concerns Infection Onset Date Last Indicated Resp-Risk 01/16/2025 01/16/2025 Insurance [facility] Care Teams E Learning Designer Relationship Specialty Start Date End Date Be Vasquez MD [address] [place] [address] PCP - General Family Medicine 01/16/25 Additional Source Comments The information contained in this document represents components of the legal health record. It is not the complete legal health record.[facility]
== END 2025-01-23 10:13 | disposition home or self-care (01) ==
LOC: HO.HMCFM 09:36
PROVIDERS: PCP Family Medicine; Visit Provider Family Medicine
DX: R06.02 Shortness of breath (principal)